=== PATIENT | female | born 1985 | race Caucasian/White ===

== ENCOUNTER → 2016-10-15 | Outpatient (CLI) | payer OTHER ==
[~2016-10-15] MED LIST: EPIP0.3I IM; MEDR4PAK3 PO; Z.0.BCPILL PO
== END ==
LOC: HPND 13:42
PROVIDERS: ATTEND Obstetrics & Gynecology
DX: Z36 Encounter for antenatal screening of mother (principal)
CPT/HCPCS: 76805

== ENCOUNTER 2017-03-02 07:56 | Inpatient (IN) | payer OTHER ==
[~2017-03-02] VITALS: Ht 167.6 cm; Wt 59.4 kg
[2017-03-02] VITALS (26 sets, daily range): BP systolic 97–130; BP diastolic 55–82; PULSE 75–100; RESP 18–20; TEMP 97.7–98
[2017-03-02] MEDS ORDERED: Prenatal Vitamin PO (08:29)
[2017-03-02] MEDS ORDERED: TERC.4%V VAGINAL (08:29)
[2017-03-02] MEDS ORDERED: LACTATED RINGER'S 1000 ML INJ 1,000 ML IV PRN (08:32)
--- NOTE | 2017-03-02 08:32 | HHI.HP ---
HPI Chief Complaint Water broke Date Seen: Mar 02, 2017 Travel History International Travel<30 Days: No Contact w/Intl Traveler<30Days: No Known Affected Area: No History of Present Illness HPI Patient is 31-year-old white female at [address] Hillman who presents complaining of water breaking this morning, no bleeding and no real contraction activity. heart rate tracing is reactive, amnio sure is positive and she grossly ruptured with on exam fluid just pours out Para: 0 : 1 History Social History Alcohol Use: No Tobacco Use: No Substance Abuse: No Allergies-Medications (Allergen,Severity, Reaction): Coded Allergies: Lactose (Verified Allergy, Severe, Diarrhea, 04/03/15) Home Meds Active Scripts Epinephrine (Epipen 2-Aidan)0.3 Mg Inj0.3 Mg IM DIRECTED PRN (ALLERGIC REACTION ) #2 INJ Ref 2 If anaphylactic symptoms persist, dose may be repeated in 5-15 minutes Prov:Jillian Shrestha MD 04/03/15 Reported Medications Terconazole Vaginal Cream (Terazol 7 Vaginal Cream)0.4 % Cream1 Appl VAGINAL HS #45 GM Ref 0 1 applicatorful intravaginally x 7 nights 03/02/17 [ Vitamin] No Conflict Check1 Tab PO DAILY 03/02/17 Discontinued Reported Medications Miscellaneous ( Control Pills) Tab1 Tab PO DAILY 04/03/15 Discontinued Scripts Methylprednisolone (Medrol Dosepak)4 Mg Pak4 Mg PO DIRECTED #1 AIDAN TAKE DIRECTED Prov:Jillian Shrestha MD 04/03/15 Review of Systems General / Constitutional: No: Fever, Weight Gain, Chills, Other Eyes: No: Diploplia, Blurred Vision, Visual changes, Pain, Photophobia HENT: No: Headaches, Vertigo, Lightheadedness Cardiovascular: No: Irregular Rhythm, Chest Pain or Discomfort, Palpitations, Tachycardia, Syncope, Varicosities, Edema, Cyanosis Respiratory: No: Cough, Short of Breath, Other Gastrointestinal: No: Nausea, Vomiting, Diarrhea Genitourinary: No: Decreased Urinary Output, Oliguria Musculoskeletal: No: Limited ROM, Weakness, Cramping, Edema, Pain Skin: No Rash, No Itching, No Dryness, No Lumps, No Change in Pigmentation, No Change in Nails, No Alopecia, No Lesions Neurologic: No: Weakness, Dizziness, Syncope, Focal Abnormalities, Coordination Problem, Headache, Slurred Speech, Seizures Psychiatric: No: Depression, Suicidal Ideations, Homicidal Ideation Endocrine: No: Heat Intolerance, Cold Intolerance, Polydipsia, Polyuria, Other Physical Exam Narrative GENERAL: Well-nourished, well-developed patient. SKIN: Warm and dry. HEAD: Normocephalic and atraumatic. EYES: No scleral icterus. No injection or drainage. ENT: No nasal drainage noted. Mucous membranes pink. Airway patent. NECK: Supple, trachea midline. No JVD. CARDIOVASCULAR: Regular rate and rhythm without murmurs, gallops, or rubs. RESPIRATORY: Breath sounds equal bilaterally. No accessory muscle use. BREASTS: Bilateral exam showed no masses , no retractions, no nipple discharge. ABDOMEN/GI: Abdomen soft, non-tender, bowel sounds present, no rebound, no guarding Gravid to [38-] weeks size Fundal Height: [38-] GENITOURINARY: External Genitalia: intact and normal in appearance clear fluid per vagina Cervix: [-] Dilatation: [-2-3] Effacement: [-70] Station: [-2] Presentation: [-vtx] Membranes: [ ruptured] Uterine Contractions: [irreg-] FHT's: Category: [1-] Baseline: [144-] Reactive: [yes-] Variability: [mod-] Decels: [none-] EXTREMITIES: No cyanosis or edema. BACK: Nontender without obvious deformity. No CVA tenderness. NEUROLOGICAL: Awake and alert. Motor and sensory grossly within normal limits. Five out of 5 muscle strength in all muscle groups. Normal speech. Data Data Labs amnisure ++ pt is known GBS + Assessment/Plan Assessment and Plan The patient is 31-year-old white female at 39 weeks of presents with spontaneous rupture membranes, gross rupture the fluid noted the here on OB ED fluid is clear. Cervix is 2-3/ 70% and -2/vtx. Patient's heart rate tracing is reactive and only an occasional contractions seen Impressions [facility] at 39 weeks with + GBS Plan is admission for labor augmentation, IV PCN, anticipate vaginal delivery, will notify Dr. Hillman patient's arrival Dae Serrano II, MD Mar 02, 2017 08:32
[2017-03-02] MEDS ORDERED: OXYTOCIN 30 UNITS-500ML PREMIX 500 ML IV SCH ×2 (08:45→18:30)
[2017-03-02] MEDS ORDERED: SODIUM CHLORID 0.9% 500 ML INJ 500 ML IV PRN (08:45)
[2017-03-02] MEDS ORDERED: LIDOCAINE HCL 1% 50 ML VIAL I-DERMAL PRN (08:45)
[2017-03-02] MEDS ORDERED: LIDOCAINE HCL 1% 50 ML VIAL INFIL PRN (08:45)
[2017-03-02] MEDS ORDERED: CITRIC ACID-SODIUM CITRATE LIQ 30 ML UDC PO SCH (08:45)
[2017-03-02] MEDS ORDERED: PENICILLIN G POTASSIUM INJ 5,000,000 UNITS in SODIUM CHLORIDE 0.9% INJ 100 ML IV ONE (08:45)
[2017-03-02] MEDS ORDERED: MINERAL OIL 10 ML VIAL TOPICAL PRN (08:45)
[2017-03-02] MEDS ORDERED: OXYTOCIN 30 UNITS-500ML PREMIX 500 ML IV ONE (08:45)
[2017-03-02] MEDS ORDERED: ONDANSETRON HCL 4 MG/2 ML VIAL IV PRN (08:45)
[2017-03-02] MEDS ORDERED: SODIUM CHLOR 0.9% 1000 ML INJ 1,000 ML IV PRN (08:52)
[2017-03-02 08:57] LABS: BACTERIA, URINE RARE /hpf; BLOOD, URINE NEG (NEG); GLUCOSE,URINE NEG (NEG); KETONE, URINE NEG (NEG); NITRITE,URINE NEG (NEG); PH, URINE 7.5 (5.0-8.5); SQUAMOUS EPITHELIAL CELL URINE 1 /hpf (0-5); URINE COLOR LIGHT-YELLOW (YELLW/STRAW)
[2017-03-02 08:58] LABS: COMMENT (UR) CULT NOT INDICATED; CULTURE IF INDICATED CULT NOT INDICATED
[2017-03-02 09:06] LABS: AUTOMATED NEUTROPHIL # 7.5 TH/MM3 (1.8-7.7); BASOPHIL % 0.4 % (0.0-2.0); EOSINOPHIL % 0.3 % (0.0-4.0); HEMATOCRIT 34.9 % (35.0-46.0); HEMO FLAGS DIFF FINAL; LYMPH % 16.6 % (9.0-44.0); LYMPHOCYTE # 1.6 TH/MM3 (1.0-4.8); MEAN CELL VOLUME 97.2 FL (80.0-100.0); MEAN CORPUSCULAR HEMOGLOBIN 33.6 PG (27.0-34.0); MEAN CORPUSCULAR HGB CONC 34.6 % (32.0-36.0); NEUT % 76.7 % (16.0-70.0); PLATELET COUNT 184 TH/MM3 (150-450); RED BLOOD COUNT 3.59 MIL/MM3 (4.00-5.30); RED CELL DISTRIBUTION WIDTH 12.7 % (11.6-17.2); WHITE BLOOD COUNT 9.7 TH/MM3 (4.0-11.0)
[2017-03-02] MEDS: LACTATED RINGER'S 1000 ML INJ 1,000 ML IV SCH ×2 (09:11→12:10)
[2017-03-02] MEDS: PENICILLIN G POTASSIUM INJ 2,500,000 UNITS in SODIUM CHLORIDE 0.9% INJ 100 ML IV SCH (13:00)
[2017-03-02] MEDS ORDERED: fentaNYL 2MCG-BUPIV 0.125% INJ 100 ML ONE (14:25)
[2017-03-02] MEDS ORDERED: ePHEDrine/NS 25 MG/5 ML SYR IV PRN (15:00)
[2017-03-02] MEDS ORDERED: fentaNYL 2MCG-BUPIV 0.125% 100 ML EPIDURAL SCH (16:00)
[2017-03-02] MEDS ORDERED: NO SYSTEM NARCOTICS PRN (16:00)
[2017-03-02] MEDS ORDERED: DIPHTH/TETANUS/ACEL PERTUSSIS (BOOSTER) 0.5 ML VIAL/PFS IM ONE (16:00)
[2017-03-02] MEDS ORDERED: DO NOT ADMINISTER ANTICOAGULANTS PRN (16:00)
[2017-03-02] MEDS ORDERED: MEASLES, MUMPS, RUBELLA VACCINE 0.5 ML VIAL SQ ONE (16:00)
[2017-03-02] MEDS ORDERED: MISOPROSTOL 100 MCG TAB ONE (17:48)
[2017-03-02] MEDS ORDERED: MISOPROSTOL 200 MCG TAB ONE (17:49)
--- NOTE | 2017-03-02 18:13 | PD.OB.DELI ---
Delivery Date: Mar 02, 2017 Anesthesia: Epidural Episiotomy: None Vaginal Delivery: Normal, Spontaneous Presentation: Occiput anterior Nuchal Cord: None Delayed cord clamping (45 sec): Yes : Female, Single One Minute : 8 Five Minute : 9 Placenta: Spontaneous delivery, Intact, 3 vessel cord Laceration: Vaginal laceration, 2 deg Repair: Chromic interrupted Estimated blood loss: 300 Pablito Ayala MD Mar 02, 2017 18:13
[2017-03-02] MEDS ORDERED: SODIUM CHLORIDE 0.9% FLUSH 10 ML FLUSH IV FLUSH PRN (18:30)
[2017-03-02] MEDS ORDERED: ACETAMINOPHEN 325 MG TAB PO PRN (18:30)
[2017-03-02] MEDS ORDERED: ZOLPIDEM TARTRATE 5 MG TAB PO PRN (18:30)
[2017-03-02] MEDS ORDERED: ONDANSETRON ODT 4 MG TAB PO PRN (18:30)
[2017-03-02] MEDS ORDERED: ALUMINUM/MAGNESIUM/SIMETH 30 ML CUP PO PRN (18:30)
[2017-03-02] MEDS ORDERED: BENZOCAINE 20% TOPICAL SPRAY 60 ML CAN TOPICAL PRN (18:30)
[2017-03-02] MEDS ORDERED: SODIUM CHLORIDE 0.9% FLUSH 10 ML FLUSH IV FLUSH SCH (21:00)
[2017-03-02] MEDS: WITCH HAZEL 50%/GLYCERIN 12.5% 40 PAD JAR TOPICAL PRN (22:15)
[2017-03-02] MEDS: IBUPROFEN 600 MG TAB PO PRN (22:16)
[2017-03-03] MEDS: DOCUSATE SODIUM 50 MG/SENNA 8.6 MG TAB PO PRN ×2 (04:23→20:05)
[2017-03-03] MEDS: IBUPROFEN 600 MG TAB PO PRN ×3 (04:24→20:06)
[2017-03-03 07:45] VITALS: BP 91/58; PULSE 76; RESP 16; TEMP 98.5
[2017-03-03] MEDS: LACTATED RINGER'S 1000 ML INJ 1,000 ML IV SCH ×2 (08:32→16:32)
[2017-03-03] MEDS: PENICILLIN G POTASSIUM INJ 2,500,000 UNITS in SODIUM CHLORIDE 0.9% INJ 100 ML IV SCH ×3 (09:00→17:00)
[2017-03-03] MEDS: WITCH HAZEL 50%/GLYCERIN 12.5% 40 PAD JAR TOPICAL PRN (20:06)
--- NOTE | 2017-03-04 01:28 | HHI.DCPOC ---
Discharge Care Plan Diagnosis: (1) Spontaneous vaginal delivery Report Symptoms to Your Doctor -Temperature above 100.5 degrees -Redness, of incision or excessive or foul smelling drainage -Unusual pain or calf pain -Increased vaginal bleeding -Painful or difficulty urinating -Feelings of extreme sadness or anxiety after 2 weeks Goals to Promote Your Health * To prevent worsening of your condition and complications * To maintain your health at the optimal level Directions to Meet Your Goals Take your medications as prescribed Follow your dietary instruction Follow activity as directed Ensure plenty of rest for recovery Drink fluids for hydration Keep your appointments as scheduled Take your immunizations and boosters as scheduled If your symptoms worsen call your PCP, if no PCP go to Urgent Care Center or Emergency Room Smoking is Dangerous to Your Health. Avoid second hand smoke Call the 24-hour crisis hotline for domestic abuse at Pablito Ayala MD Mar 04, 2017 01:28
[2017-03-04] MEDS: IBUPROFEN 600 MG TAB PO PRN ×2 (03:19→14:58)
[2017-03-04 07:50] VITALS: BP 123/81; PULSE 97; RESP 16; TEMP 97.8
--- NOTE | 2017-03-04 09:03 | HHI.OB ---
Subjective Post Day: 2 Remarks doing well Objective Vitals/I&O Vital Signs Date Time Temp Pulse Resp B/P Pulse Ox O2 Delivery O2 Flow Rate FiO2 03/04/17 07:50 123/81 03/04/17 07:50 97.8 97 16 Objective Remarks GENERAL: Well-nourished, well-developed patient. ABDOMEN/GI: Abdomen soft, non-tender. Fundus: Firm, non-tender at umbilicus. GENITOURINARY: Light to moderate bleeding. EXTREMITIES: No cyanosis or edema, non-tender, without signs of DVT. Medications and IVs Current Medications Medications (Trade) Dose Ordered Sig/Paulina Route Start Time Stop Time Status Last Admin Lactated Ringer's 1,000 ml @ 125 mls/hr Q8H IV 03/02/17 08:32 03/02/17 12:10 Lactated Ringer's 1,000 ml @ 3,000 mls/hr Q20M PRN IV 03/02/17 08:32 (NS 1000 ml Inj) 1,000 ml @ 100 mls/hr Q10H PRN IV 03/02/17 08:52 (Zofran Inj) 4 mg Q6H PRN IV 03/02/17 08:45 (fentaNYL INJ) 50 mcg Q1H PRN IV PUSH 03/02/17 08:45 (fentaNYL INJ) 100 mcg Q1H PRN IV PUSH 03/02/17 08:45 Mineral Oil 10 ml 10 ml UNSCH PRN TOPICAL 03/02/17 08:45 Oxytocin 500 ml @ 0 mls/hr TITRATE IV 03/02/17 08:45 03/02/17 12:10 (fentaNYL 2MCG-BUPIV 0.125% INJ) 100 ml @ 0 mls/hr TITRATE EPIDURAL 03/02/17 16:00 (NS Flush) 2 ml BID IV FLUSH 03/02/17 21:00 (NS Flush) 2 ml UNSCH PRN IV FLUSH 03/02/17 18:30 (Tylenol) 650 mg Q4H PRN PO 03/02/17 18:30 (Motrin) 600 mg Q6H PRN PO 03/02/17 18:30 03/04/17 03:19 (Americaine 20% Top Spr) 1 spray Q4H PRN TOPICAL 03/02/17 18:30 03/02/17 22:15 (Tucks Pads) 1 applic QID PRN TOPICAL 03/02/17 18:30 03/03/17 20:06 (Floridalma-Colace) 2 tab Q12H PRN PO 03/02/17 18:30 03/03/17 20:05 (Ambien) 5 mg HS PRN PO 03/02/17 18:30 (Mag-Al Plus Susp Liq) 15 ml Q8H PRN PO 03/02/17 18:30 (Zofran Odt) 4 mg Q6H PRN PO 03/02/17 18:30 Assessment/Plan Assessment and Plan Impressions [facility] at 39 weeks with + GBS DC home SP pradip Ayala,Pablito Jackson MD Mar 04, 2017 09:03
[2017-03-04] MEDS ORDERED: PERC5TAB12 PO (09:05)
--- NOTE | 2017-03-04 09:06 | HHI.DS ---
Admission Date Mar 02, 2017 at 08:53 Discharge Date: Mar 04, 2017 Admitting Diagnosis Diagnosis: (1) Spontaneous vaginal delivery Diagnosis: Principal Delivery Date: Mar 02, 2017 Vaginal Delivery: Normal, Spontaneous Infant: Female, Single Brief History Patient is 31-year-old white female at [address] Hillman who presents complaining of water breaking this morning, no bleeding and no real contraction activity. 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
== END 2017-03-04 19:12 | disposition home or self-care (01) | DRG 775 ==
LOC: HOBED 07:56 → H2EA 08:53 → H1EA 20:20
PROVIDERS: ADMIT Obstetrics & Gynecology; ATTEND Obstetrics & Gynecology
PROC: 10E0XZZ Delivery of Products of Conception, External Approach (ICD-10-PCS; principal; 2017-03-02)
PROC: 0KQM0ZZ Repair Perineum Muscle, Open Approach (ICD-10-PCS; 2017-03-02)
DX: O99.824 Streptococcus B carrier state complicating childbirth (principal); Z37.0 Single live birth; Z3A.39 39 weeks gestation of pregnancy; O70.1 Second degree perineal laceration during delivery
CPT/HCPCS: 81001; 84112; 85025; 86900; 86901; 90715; J2540; J2590; J7120